=== PATIENT | male | born 1985 | race Caucasian/White ===

== ENCOUNTER 2017-11-02 02:36 | Emergency (ER) ==
[2017-11-02 02:48] VITALS: BP 159/100; TEMP 98.5; BMI 29.6
[2017-11-02] MEDS ORDERED: DECADRON 4 MG/ML SDV IM STA (02:58)
--- NOTE | 2017-11-02 03:01 | ED.PDOC ---
General ED Provider: Dr. STARR POON Chief Complaint: Fever Stated Complaint: Been coughing, congested,. getting some sputum. no fever or chills/. Time Seen by Physician: 02:59 Mode of Arrival: Walk-In Information Source: Patient Primary Care Provider: JENNIFER RAND Nursing and Triage Documentation Reviewed and Agree: Yes Reviewed sepsis parameters & appropriate labs ordered?: No System Inflammatory Response Syndrome: Not Applicable Sepsis Protocol: For patient's 13 years and over: Temp is 96.8 and below OR 101 and greater Pulse >90 BPM Resp >20/minute Acutely Altered Mental Status Are patient's symptoms suggestive of a new infection, such as: -Pneumonia -Skin, Soft Tissue -Endocarditis -UTI -Bone, Joint Infection -Implantable Device -Acute Abdominal Infection -Wound Infection -Meningitis -Blood Stream Catheter Infection -Unknown Respiratory Complaint Exam - Respiratory Complaint/Exam Symptoms Are: Still present Timing: Constant Initial Severity: Moderate Current Severity: Moderate Location: Throat, Chest Character: Reports: Productive cough Aggravating: Reports: Allergens, URI Alleviating: Reports: None Associated Signs and Symptoms: Reports: URI, Nasal congestion. Denies: Rapid breathing, Dyspnea, Fever, Chills, Chest pain, Pleuritic chest pain, Wheezing, Hemoptysis, Dizziness, Calf pain, Calf swelling, Edema, Hoarseness, Sinus discomfort, Vomiting, Sore throat, Weight loss, Decreased oral intake, Increased thirst, Increased appetite, Increased urination History of Healthcare-Acquired Pneumonia: No Related Surgical History: Reports: None Pulmonary Embolism Risk Factors: None Cardiac Risk Factors: Reports: None Pseudomonas Risk Factors: Reports: None Tuberculosis Risk Factors: Reports: None Status Asthmaticus Risk Factors: Reports: None Home Oxygen Use: No Recent Stress Test: No Recent Echo/LV Function: No Current Antibiotic Use: No Current Asthma Medication Use: No Respiratory Distress: Mild Inadequate Respiratory Effort: No Dysphagia Present: No Stridor Present: No JVD Present: No Accessory Muscle Use: No Retractions: Not Present Diminished Breath Sounds: No Sinus Tenderness: None Grunting Respirations: No Kussmaul Respirations: No Differential Diagnoses: Pneumonia, Bronchitis Review of Systems - Review Of Systems Constitutional: Reports: Weakness Eyes: Reports: No symptoms Ears, Nose, Mouth, Throat: Reports: No symptoms Respiratory: Reports: Cough Cardiac: Reports: No symptoms GI: Reports: No symptoms : Reports: No symptoms Musculoskeletal: Reports: No symptoms Skin: Reports: No symptoms Neurological: Reports: No symptoms Endocrine: Reports: No symptoms Hematologic/Lymphatic: Reports: No symptoms All Other Systems: Reviewed and Negative Past Medical History - Past Medical History Previously Healthy: Yes Endocrine: Reports: None Cardiovascular: Reports: None Respiratory: Reports: None Hematological: Reports: None Gastrointestinal: Reports: None Genitourinary: Reports: None Neuro/Psych: Reports: None Musculoskeletal: Reports: None Cancer: Reports: None - Surgical History General Surgical History: Reports: None - Family History Family History: Reports: None - Social History Smoking Status: Current every day smoker, Heavy tobacco smoker Hx Substance Use: No Alcohol Screening: None - Immunizations Tetanus Shot up to Date: Yes Physical Exam - Physical Exam Appearance: Ill-appearing Eyes: GÓMEZ, EOMI, Conjunctiva clear ENT: Ears normal, Nose normal, Oropharynx normal Respiratory: Crackles Cardiovascular: RRR, Pulses normal, No rub, No murmur GI/: Soft, Nontender, No masses, Bowel sounds normal, No Organomegaly Musculoskeletal: Normal strength, ROM intact, No edema, No calf tenderness Skin: Warm, Dry, Normal color Neurological: Sensation intact, Motor intact, Reflexes intact, Cranial nerves intact, Alert, Oriented Psychiatric: Affect appropriate, Mood appropriate Interpretation - Radiology Interpretation Radiology Interpretation By: ED Physician Radiology Results: Positive Exam Interpreted: CXR Critical Care Note - Critical Care Note Total Time (mins): 15 Course - Course Orders, Labs, Meds: Orders Category Date Time Status Ceftriaxone Sodium [Rocephin] MEDS 11/02/17 03:19 Stat 1 gm IM ONCE STA Dexamethasone 4 mg/ml Inj [Decadron 4 mg/ml Sdv] MEDS 11/02/17 02:58 Discontinued 4 mg IM ONCE STA Lidocaine HCl/Pf [Lidocaine HCl 1% Sdv] MEDS 11/02/17 03:19 Stat 5 ml SUBCUT ONCE STA CHEST, 2 VIEWS PA & LAT Stat RADS 11/02/17 02:58 Completed Medications Discontinued Medications Generic Name Dose Route Start Last Admin Trade Name Freq PRN Reason Stop Dose Admin Dexamethasone Sodium Phosphate 4 mg 11/02/17 02:58 11/02/17 03:08 Decadron 4 Mg/Ml Sdv IM 11/02/17 02:59 4 mg ONCE STA Administration Vital Signs: Temp Pulse Resp BP Pulse Ox 11/02/17 02:37 98.5 F 98 H 20 159/100 H 95 Departure - Departure Time of Disposition: 03:21 Disposition: HOME SELF-CARE Discharge Problem: Pneumonia Qualifiers: Pneumonia type: due to unspecified organism Laterality: left Lung location: lower lobe of lung Qualified Code(s): J18.1 - Lobar pneumonia, unspecified organism Instructions: Community Acquired Pneumonia (ED) Condition: Stable Pt referred to PMD for follow-up: Yes IPMP verified?: No Additional Instructions: Take medication with food. Probiotics Keep checking BP. F/u at [facility] in 2-3 days. Prescriptions: Cephalexin [Keflex] 500 mg PO Q12HR #20 capsule Guaifenesin/Dextromethorphan [Robitussin Cough-Chest Dm Liq] 10 ml PO TID #1 bottle Prednisone 10 mg PO BIDWM #14 tablet Allergies/Adverse Reactions: Allergies No Known Drug Allergies Adverse Reaction (Verified 11/02/17 02:46) Home Medications: Ambulatory Orders Cephalexin [Keflex] 500 mg PO Q12HR #20 capsule 11/02/17 Guaifenesin/Dextromethorphan [Robitussin Cough-Chest Dm Liq] 10 ml PO TID #1 bottle 11/02/17 Prednisone 10 mg PO BIDWM #14 tablet 11/02/17 Disposition Discussed With: Patient, Family
--- NOTE | 2017-11-02 03:18 | DI ---
EXAM: Chest, 2 views, 11/02/2017 HISTORY: Cough COMPARISON: None. FINDINGS / IMPRESSION: Air bronchograms are present within the medial aspect of the left lung base. This may represent a combination of atelectasis and/or pneumonia. No definitive pleural effusion. No pneumothorax. The heart size remains within normal limits.
[2017-11-02] MEDS ORDERED: LIDOCAINE HCL 1% SDV SUBCUT STA (03:19)
[2017-11-02] MEDS ORDERED: ROCEPHIN IM STA (03:19)
[2017-11-02] MEDS ORDERED: NORCO 5-325 PO STA (03:23)
== END 2017-11-02 04:25 | disposition home or self-care (01) ==
LOC: ED 02:36
DX: J18.1 Lobar pneumonia, unspecified organism (principal); F17.210 Nicotine dependence, cigarettes, uncomplicated
CPT/HCPCS: 96372; 99283

== ENCOUNTER 2018-11-21 19:25 | Emergency (ER) ==
[2018-11-21 19:29] VITALS: TEMP 97.6; BMI 30.4
--- NOTE | 2018-11-21 19:41 | ED.PDOC ---
General ED Provider: Dr. CAYETANO DARBY-ER Chief Complaint: Foot Pain/Injury Stated Complaint: i had surgery a few weeks ago on my foot but i missed my f/u appt --its hurting now Time Seen by Physician: 19:30 Mode of Arrival: Walk-In Information Source: Patient Exam Limitations: No limitations Primary Care Provider: JJ RIBERA Nursing and Triage Documentation Reviewed and Agree: Yes Does patient meet sepsis criteria?: No System Inflammatory Response Syndrome: Not Applicable Sepsis Protocol: For patient's 13 years and over: Temp is 96.8 and below OR 101 and greater Pulse >90 BPM Resp >20/minute Acutely Altered Mental Status Are patient's symptoms suggestive of a new infection, such as: -Pneumonia -Skin, Soft Tissue -Endocarditis -UTI -Bone, Joint Infection -Implantable Device -Acute Abdominal Infection -Wound Infection -Meningitis -Blood Stream Catheter Infection -Unknown Skin Complaint Exam - Skin/Soft Tissue Complaint/Exam Onset/Duration: a few weeks Symptoms Are: Still present Initial Severity: Mild Current Severity: Mild Location: right 3rd toe Character: Reports: Painful Aggravating: Reports: Touch Associated Signs and Symptoms: Reports: Tenderness. Denies: Fever, Chills, Itching, Drainage, Bruising Related Surgical History: Reports: None Recent Exposure to Others w/Similar Symptoms: No Skin Findings: Present: Other Joint Tenderness Present: No Differential Diagnoses: Abscess, Cellulitis, Infection Review of Systems - Review Of Systems Constitutional: Reports: No symptoms Eyes: Reports: No symptoms Ears, Nose, Mouth, Throat: Reports: No symptoms Respiratory: Reports: No symptoms Cardiac: Reports: No symptoms GI: Reports: No symptoms : Reports: No symptoms Musculoskeletal: Reports: No symptoms Skin: Reports: Other (noted wound right 3rd toe with packing) Neurological: Reports: No symptoms Endocrine: Reports: No symptoms Hematologic/Lymphatic: Reports: No symptoms All Other Systems: Reviewed and Negative Past Medical History - Past Medical History Previously Healthy: Yes Endocrine: Reports: None Cardiovascular: Reports: None Respiratory: Reports: None Hematological: Reports: None Gastrointestinal: Reports: None Genitourinary: Reports: None Neuro/Psych: Reports: None Musculoskeletal: Reports: None Cancer: Reports: None - Surgical History General Surgical History: Reports: None - Family History Family History: Reports: None - Social History Smoking Status: Current every day smoker, Heavy tobacco smoker Hx Substance Use: No Alcohol Screening: None Physical Exam - Physical Exam Appearance: Well-appearing, No pain distress, Well-nourished Pain Distress: Mild Eyes: GÓMEZ, EOMI, Conjunctiva clear ENT: Ears normal, Nose normal, Oropharynx normal Neck: Supple Respiratory: Airway patent, Breath sounds clear, Breath sounds equal, Respirations nonlabored Cardiovascular: RRR, Pulses normal, No rub, No murmur GI/: Soft, Nontender, No masses, Bowel sounds normal, No Organomegaly Musculoskeletal: Normal strength, ROM intact, No edema, No calf tenderness Skin: Warm, Dry, Normal color Neurological: Sensation intact Psychiatric: Affect appropriate, Mood appropriate Re-Evaluation - Re-Evaluation Time of Re-Evaluation: 20:50 Status: Improved Vital Signs Stable: Yes (bp 160/100) Pain Level: 2 Appearance: NAD Lungs: Clear Skin: Warm and Dry Neuro: Alert and Oriented X3 CV: RRR Critical Care Note - Critical Care Note Total Time (mins): 0 Course - Course Orders, Labs, Meds: Orders Category Date Time Status ED ALMOND PASTE MIXER APPLIED .ONCE EMERGENCY 11/21/18 19:44 Active Clonidine HCl [Catapres] MEDS 11/21/18 19:46 Discontinued 0.1 mg PO ONCE STA Metoprolol Tartrate [Lopressor] MEDS 11/21/18 19:44 Discontinued 50 mg PO ONCE STA Nifedipine [Procardia Xl] MEDS 11/21/18 19:44 Discontinued 60 mg PO ONCE STA Medications Discontinued Medications Generic Name Dose Route Start Last Admin Trade Name Freq PRN Reason Stop Dose Admin Clonidine 0.1 mg 11/21/18 19:46 11/21/18 19:49 Catapres PO 11/21/18 19:47 0.1 mg ONCE STA Administration Metoprolol Tartrate 50 mg 11/21/18 19:44 11/21/18 19:50 Lopressor PO 11/21/18 19:45 50 mg ONCE STA Administration Nifedipine 60 mg 11/21/18 19:44 11/21/18 19:49 Procardia Xl PO 11/21/18 19:45 60 mg ONCE STA Administration right foot is examined---pulses intact---no erythema or drainage---wound appears to healing nicely with packing Vital Signs: Temp Pulse Resp BP Pulse Ox 11/21/18 20:46 178/114 H 11/21/18 20:37 182/114 H 11/21/18 20:04 174/110 H 11/21/18 20:00 176/124 H 11/21/18 19:25 97.6 F 98 H 20 217/154 H 96 Departure - Departure Time of Disposition: 19:42 Disposition: HOME SELF-CARE Discharge Problem: Wound, open, foot Qualifiers: Encounter type: subsequent encounter Laterality: right Qualified Code(s): S91.301D - Unspecified open wound, right foot, subsequent encounter Instructions: Acute Wound Care (ED) Condition: Good Pt referred to PMD for follow-up: Yes IPMP verified?: No Additional Instructions: clindamycin 300mg qid x 7 days--norco 7.5mg q 4hrs prn paiun #10---see dr blake tomorrow for recheck Allergies/Adverse Reactions: Allergies No Known Drug Allergies Adverse Reaction (Verified 11/21/18 19:28) Home Medications: Ambulatory Orders Clonidine HCl [Catapres] 0.1 mg PO BID 11/21/18 Disposition Discussed With: Patient
[2018-11-21] MEDS ORDERED: PROCARDIA XL PO STA (19:44)
[2018-11-21] MEDS ORDERED: LOPRESSOR PO STA (19:44)
[2018-11-21] MEDS ORDERED: CATAPRES PO STA (19:46)
[2018-11-21 20:50] VITALS: BP 160/100
== END 2018-11-21 20:59 | disposition home or self-care (01) ==
LOC: ED 19:25
DX: G89.18 Other acute postprocedural pain (principal); S91.104D Unspecified open wound of right lesser toe(s) without damage to nail, subsequent encounter; Z98.890 Other specified postprocedural states; F17.210 Nicotine dependence, cigarettes, uncomplicated
CPT/HCPCS: 99283